=== PATIENT | male | born 1970 | race Hispanic/Latino ===

== ENCOUNTER 2018-03-03 19:59 | Emergency (ER) | payer BC, OTHER ==
[2018-03-03 20:15] VITALS: BP 127/74; RESP 20; TEMP 98; BMI 29.0
--- NOTE | 2018-03-03 20:37 | ED PDOC ---
Arrival/HPI - General Historian: Patient <Chitra Martinez PA-C - Last Filed: 03/03/18 22:53> <Fernie Murdock - Last Filed: 03/03/18 23:13> - General Chief Complaint: Anxiety Time Seen by Provider: 03/03/18 20:00 - History of Present Illness Narrative History of Present Illness (Text): 03/03/18 20:38 A 47 year old male, with no significant past medical history, presents to the emergency department complaining of anxiety. Patient reports he was sitting at a pizzeria, waiting for his pizza, when he suddenly began hyperventilating and experiencing tightness throughout his body, head to toes. States symptoms became worse, and someone at the pizzeria witnessed this, calling 911 for the patient to be brought to the ER. Symptoms have improved upon arrival. States he has had panic attacks in the past but never as bad as this episode. Patient denies any SI/HI, auditory/visual hallucinations, chest pain, shortness of breath, dizziness, headache, fever, or any other complaints at this time. Also, patient mentions experiencing a lot of stress at work and with personal relationships. Mentions he may also have depression for years, however has never been seen by a psychiatrist in the past. No PMD (Chitra Martinez PA-C) Past Medical History - Provider Review Nursing Documentation Reviewed: Yes - Infectious Disease Hx of Infectious Diseases: None - Cardiac Hx Cardiac Disorders: No - Pulmonary Hx Respiratory Disorders: Yes Hx Bronchitis: Yes - Neurological Hx Neurological Disorder: No - HEENT Hx HEENT Disorder: No - Renal Hx Renal Disorder: No - Endocrine/Metabolic Hx Endocrine Disorders: No - Hematological/Oncological Hx Blood Disorders: No - Integumentary Hx Dermatological Disorder: No - Musculoskeletal/Rheumatological Hx Musculoskeletal Disorders: No - Gastrointestinal Hx Gastrointestinal Disorders: No - Genitourinary/Gynecological Hx Genitourinary Disorders: No - Psychiatric Hx Psychophysiologic Disorder: No Hx Substance Use: No - Surgical History Other/Comment: Lymph node removal <Chitra Martinez PA-C - Last Filed: 03/03/18 22:53> Family/Social History - Physician Review Nursing Documentation Reviewed: Yes Family/Social History: No Known Family HX Smoking Status: Heavy Smoker > 10 Cigarettes Daily Hx Alcohol Use: Yes Frequency of alcohol use: Socially Hx Substance Use: No <Chitra Martinez PA-C - Last Filed: 03/03/18 22:53> Allergies/Home Meds <Chitra Martinez PA-C - Last Filed: 03/03/18 22:53> <Fernie Murdock - Last Filed: 03/03/18 23:13> Allergies/Adverse Reactions: Allergies No Known Allergies Allergy (Verified 03/03/18 20:06) Home Medications: Home Meds Medication Instructions Recorded Confirmed No Known Home Med 03/03/18 03/03/18 Review of Systems - Physician Review All systems were reviewed & negative as marked: Yes - Review of Systems Constitutional: absent: Fevers Respiratory: absent: SOB Cardiovascular: absent: Chest Pain Gastrointestinal: absent: Nausea, Vomiting Neurological: absent: Dizziness Psychiatric: absent: Suicidal Ideation (no homicidal ideation as well), Other ( no auditory/visual hallucinations) <Chitra Martinez PA-C - Last Filed: 03/03/18 22:53> Physical Exam Vital Signs Reviewed: Yes Temperature: Afebrile Blood Pressure: Normal Pulse: Regular Respiratory Rate: Normal Appearance: Positive for: Well-Appearing, Non-Toxic, Comfortable Pain Distress: None Mental Status: Positive for: Alert and Oriented X 3 - Systems Exam Head: Present: Atraumatic, Normocephalic Pupils: Present: PERRL Extroacular Muscles: Present: EOMI Conjunctiva: Present: Normal Mouth: Present: Moist Mucous Membranes Neck: Present: Normal Range of Motion Respiratory/Chest: Present: Clear to Auscultation, Good Air Exchange. No: Respiratory Distress, Accessory Muscle Use Cardiovascular: Present: Regular Rate and Rhythm, Normal S1, S2. No: Murmurs Abdomen: No: Tenderness, Distention, Peritoneal Signs Back: Present: Normal Inspection Upper Extremity: Present: Normal Inspection. No: Cyanosis, Edema Lower Extremity: Present: Normal Inspection. No: Edema Neurological: Present: GCS=15, CN II-XII Intact, Speech Normal Skin: Present: Warm, Dry, Normal Color. No: Rashes Psychiatric: Present: Alert, Oriented x 3, Normal Insight, Normal Concentration <Chitra Martinez PA-C - Last Filed: 03/03/18 22:53> Vital Signs Temp Pulse Resp BP Pulse Ox 03/03/18 20:06 98.0 F 67 20 127/74 96 Medical Decision Making <Juan EMERSON,Chitra Nair - Last Filed: 03/03/18 22:53> <Fernie Murdock - Last Filed: 03/03/18 23:13> ED Course and Treatment: 03/03/18 20:48 Impression: 47 year old male with anxiety. No acute findings on physical examination. Plan: -- EKG -- Chest X-ray -- Labs -- Urinalysis -- [facility] Crisis Evaluation -- Xanax 0.5 mg PO -- Reassess and disposition Progress Notes: 03/03/18 22:53 EKG : NSR at 68 bpm, (-) acute ST changes, as read by SEJAL. CXR : NAD, as read by SEJAL Labs reviewed and wnl. Urine tox (-), Alcohol (-). Patient is medically cleared for PES evaluation. Patient is seen and evaluated by PES. As per PES evaluation, decision made for outpatient follow up as per Dr. Tijerina. On reevaluation, patient reports improvement of symptoms, denies any dizziness, headache, SOB or CP. On exam, patient remains awake alert and oriented 3 in no acute distress. VSS. Repeat neuro exam shows no focal findings. Advised to follow up with primary care physician and with referral provided by crisis in 1-2 days without fail. Return to the emergency room at any time for any new or worsening symptoms. Patient states he fully agrees with and understands discharge instructions. States that he agrees with the plan and disposition. Verbalized and repeated discharge instructions and plan. I have given the patient opportunity to ask any additional questions. (Chitra Martinez PA-C) - Lab Interpretations Lab Results: 03/03/18 20:46 03/03/18 20:46 Lab Results 03/03/18 22:00: Urine Opiates Screen Negative, Urine Methadone Screen Negative, Ur Barbiturates Screen Negative, Ur Phencyclidine Scrn Negative, Ur Amphetamines Screen Negative, U Benzodiazepines Scrn Negative, U Oth Cocaine Metabols Negative, U Cannabinoids Screen Negative 03/03/18 22:00: Urine Color Yellow, Urine Appearance Clear, Urine pH 8.0, Ur Specific Center 1.015, Urine Protein Negative, Urine Glucose (UA) Negative, Urine Ketones Negative, Urine Blood Negative, Urine Nitrate Negative, Urine Bilirubin Negative, Urine Urobilinogen 0.2, Ur Leukocyte Esterase Negative 03/03/18 20:46: Alcohol, Quantitative < 10 03/03/18 20:46: Sodium 142, Potassium 3.8, Chloride 106, Carbon Dioxide 23, Anion Gap 17, BUN 14, Creatinine 1.0, Est GFR ( Amer) > 60, Est GFR (Non- Af Amer) > 60, Random Glucose 111 H, Calcium 9.6, Total Bilirubin 0.6, AST 20, ALT 44, Alkaline Phosphatase 52, Total Creatine Kinase 94, Total Protein 7.6, Albumin 4.4, Globulin 3.2, Albumin/Globulin Ratio 1.4 03/03/18 20:46: WBC 9.0, RBC 4.74, Hgb 15.8, Hct 43.7, MCV 92.2, MCH 33.3, MCHC 36.2, RDW 13.0, Plt Count 277, MPV 10.3, Gran % 44.3 L, Lymph % (Auto) 41.5 H, [place] % (Auto) 9.8 H, Eos % (Auto) 4.0, Baso % (Auto) 0.4, Gran # 4.00, Lymph # ( Auto) 3.7 H, [place] # (Auto) 0.9 H, Eos # (Auto) 0.4, Baso # (Auto) 0.04 - RAD Interpretation Radiology Orders: 03/03/18 20:24 CHEST PORTABLE [RAD] Stat - Medication Orders Current Medication Orders: Discontinued Medications Alprazolam (Xanax) 0.5 mg PO STAT STA PRN Reason: Protocol Stop: 03/03/18 22:56 - PA / [employer] / Resident Statement ROMERO has reviewed & agrees with the documentation as recorded. - Scribe Statement The provider has reviewed the documentation as recorded by the Scribe <Chitra Martinez PA-C - Last Filed: 03/03/18 22:53> - PA / [employer] / Resident Statement ROMERO has reviewed & agrees with the documentation as recorded. / has examined the patient and agrees with the treatment plan. <Fernie Murdock - Last Filed: 03/03/18 23:13> - Scribe Statement Brayan Bosch Provider Scribe Attestation: All medical record entries made by the Scribe were at my direction and personally dictated by me. I have reviewed the chart and agree that the record accurately reflects my personal performance of the history, physical exam, medical decision making, and the department course for this patient. I have also personally directed, reviewed, and agree with the discharge instructions and disposition. (Chitra Martienz PA-C) Disposition/Present on Arrival - Present on Arrival Any Indicators Present on Arrival: No History of DVT/PE: No History of Uncontrolled Diabetes: No Urinary Catheter: No History of Decub. Ulcer: No History Surgical Site Infection Following: None - Disposition Have Diagnosis and Disposition been Completed?: Yes Disposition Time: 22:30 Patient Plan: Discharge <Chitra Martinez PA-C - Last Filed: 03/03/18 22:53> <Fernie Murdock - Last Filed: 03/03/18 23:13> - Disposition Diagnosis: Panic attack Disposition: HOME/ ROUTINE Condition: STABLE Discharge Instructions (ExitCare): Panic Disorder (DC) Additional Instructions: Thank you for letting us take care of you today. You were treated for anxiety. The emergency medical care you received today was directed at your acute symptoms. Return to the Emergency Department if your symptoms worsen, do not improve, or if you have any other problems. Please contact your doctor in 2 days for re-evaluation and follow up / or call one of the physicians/clinics you have been referred to that are listed on the Patient Visit Information form that is included in your discharge packet. Bring any paperwork you were given at discharge with you along with any medications you are taking to your follow up visit. Our treatment cannot replace ongoing medical care by a primary care provider (PCP) outside of the emergency department. Thank you for allowing the [facility] team to be part of your care today. Referrals: PCP,NO [Primary Care Provider] - Follow up with primary Forms: [employer] (Vietnamese)
[2018-03-03 21:08] LABS: BASO # 0.04 K/mm3 (0.0-2.0); BASO % 0.4 % (0.0-3.0); EOS # 0.4 (0.0-0.7); GRAN % 44.3 % (50.0-68.0); HEMOGLOBIN 15.8 g/dL (14.0-18.0); LYMPH # 3.7 (1.2-3.4); LYMPH % 41.5 % (22.0-35.0); MEAN CELL VOLUME 92.2 fl (80.0-105.0); MEAN CORPUSCULAR HEMOGLOBIN 33.3 pg (25.0-35.0); MEAN CORPUSCULAR HGB CONC 36.2 g/dl (31.0-37.0); MEAN PLATELET VOLUME 10.3 fl (7.0-11.0); MONO # 0.9 (0.1-0.6); MONO % 9.8 % (1.0-6.0); RBC 4.74 10^6/uL (3.5-6.1)
[2018-03-03 21:23] LABS: BLOOD UREA NITROGEN 14 mg/dL (7-21); CALCIUM 9.6 mg/dL (8.4-10.5); GFR AFRICAN-AMERICAN > 60; GFR NON-AFRICAN AMERICAN > 60
[2018-03-03 21:24] LABS: ALB/GLOB RATIO 1.4 (1.1-1.8); ALBUMIN 4.4 g/dL (3.0-4.8)
[2018-03-03 21:25] LABS: ALT/SGPT 44 U/L (7-56); AST/SGOT 20 U/L (17-59)
[2018-03-03 22:27] LABS: URINE BILIRUBIN NEGATIVE (NEGATIVE); URINE BLOOD NEGATIVE (NEGATIVE); URINE GLUCOSE (UA) NEGATIVE (NEGATIVE); URINE LEUKOCYTE ESTERASE NEGATIVE Leu/uL (NEGATIVE); URINE PROTEIN NEGATIVE mg/dL (<30 mg/dL); URINE UROBILINOGEN 0.2 E.U./dL (<1 E.U./dL)
[2018-03-03 22:29] LABS: URINE APPEARANCE CLEAR (CLEAR); URINE COLOR YELLOW (YELLOW)
[2018-03-03 22:46] LABS: BARBITURATES, UR NEGATIVE (NEGATIVE); BENZODIAZEPINES, UR NEGATIVE (NEGATIVE); OPIATES, UR NEGATIVE (NEGATIVE); PHENCYCLIDINE, UR NEGATIVE (NEGATIVE)
[2018-03-03 23:49] VITALS: PULSE 72; O2SAT 99
--- NOTE | 2018-03-04 09:04 | RAD ---
Date of service: 03/03/2018 HISTORY: crisis eval COMPARISON: No prior. FINDINGS: LUNGS: No active pulmonary disease. PLEURA: No significant pleural effusion identified, no pneumothorax apparent. CARDIOVASCULAR: Normal. OSSEOUS STRUCTURES: No significant abnormalities. VISUALIZED UPPER ABDOMEN: Normal. OTHER FINDINGS: None. IMPRESSION: No active disease.
--- NOTE | 2018-03-04 15:20 | CARD ---
APPROVED REPORT Date of service: 03/03/2018 EKG Measurement Heart [id number] <Conclusion> Normal sinus rhythm Normal ECG
== END 2018-03-03 23:48 | disposition home or self-care (01) ==
LOC: ED 19:59
DX: F41.0 Panic disorder [episodic paroxysmal anxiety] (principal); F17.210 Nicotine dependence, cigarettes, uncomplicated